=== PATIENT | male | born 1985 | race American Indian/Alaskan Native ===

== ENCOUNTER 2019-04-10 18:41 | Emergency (ER) | payer BC, MEDICARE ==
[2019-04-10 20:05] LABS: Basophils % (Auto) 0.8 % (0.0-1.8); Eosinophils % (Auto) 1.1 % (0.0-4.3); Hematocrit 35.9 % (35.5-45.6); Hemoglobin 11.9 gm/dl (11.8-15.2); Lymphocytes # (Auto) 1.3 K/mm3 (1.2-5.4); Mean Corpuscular HGB Conc 33 % (32-34); Mean Corpuscular Volume 105 fl (84-94); Monocytes # (Auto) 0.4 K/mm3 (0.0-0.8); Monocytes % (Auto) 10.5 % (0.0-7.3); Platelet Count 123 K/mm3 (140-440); Red Blood Count 3.42 M/mm3 (3.65-5.03); Red Cell Distribution Width 14.8 % (13.2-15.2)
[2019-04-10] MEDS ORDERED: SODIUM BICARB 8.4% 50 MEQ/50 ML SYRINGE IV ONE (20:06)
[2019-04-10] MEDS ORDERED: ALPRAZolam 0.5 MG TAB PO ONE (20:06)
[2019-04-10] MEDS ORDERED: dilTIAZem 25 MG/5 ML INJ IVP ONE (20:06)
--- NOTE | 2019-04-10 20:07 | Emergency Department Report ---
ED General Adult HPI - General Chief complaint: Arrhythmia/Palpitations Stated complaint: HEART RATE INCREASED Time Seen by Provider: 04/10/19 19:22 Source: patient, EMS (by EMS disclaimer), RN notes reviewed Mode of arrival: Ambulatory Limitations: No Limitations - History of Present Illness Initial comments: Primary care Dr.: Dr Javier Moreau Nephrology: Dr Brigitte Gong Cardiology: Dr Conrad Alvarez at [facility] Past medical history: End-stage renal disease, on dialysis, Monday, Monday, Monday, history of hypertension, history of a flutter/A. fib, chronic anticoagulation, reports history of ablation This is a pleasant 33-year-old gentleman who is not known to this provider previously. He presents to the ER with a complaint of painless tachycardia. He reports that he was at dialysis earlier on today, and was found to be in a flutter with rapid ventricular response. He denies physical pain at this time. He is asking to eat and drink. He endorses compliance with his medications. He endorses dietary compliance. He is currently engaged with his cellular phone, and does not appear to be in any acute distress. He reports that he's had a rapid a flutter in the past, and he indicates that being asymptomatic is typical for him. -: Sudden Severity scale (0 -10): 0 Consistency: constant Improves with: none Associated Symptoms: denies other symptoms - Related Data Previous Rx's Medication Instructions Recorded Last Taken Type dilTIAZem [Cardizem] 30 mg PO Q6HR #28 tablet 04/10/19 Unknown Rx Allergies Allergy/AdvReac Type Severity Reaction Status Date / Time lisinopril Allergy Angioedema Verified 04/10/19 19:09 ED Review of Systems ROS: Stated complaint: HEART RATE INCREASED Other details as noted in HPI Constitutional: denies: fever Eyes: denies: eye discharge ENT: denies: congestion Cardiovascular: as per HPI. denies: edema, syncope Gastrointestinal: denies: nausea, vomiting, hematemesis, melena, hematochezia Musculoskeletal: denies: myalgia Skin: denies: lesions Neurological: denies: weakness Hematological/Lymphatic: denies: easy bleeding ED Past Medical Hx - Past Medical History Previous Medical History?: Yes Hx Hypertension: Yes Hx Heart Attack/AMI: Yes (2 heart clamps, [place]) Hx Renal Disease: Yes (ESRD Dialysis MWF) Additional medical history: Hert murmur, leaky valves - Surgical History Past Surgical History?: Yes Additional Surgical History: 2 heart clamps, 2 knee replacements, peritoneal diaysis (previously) - Social History Smoking Status: Current Every Day Smoker Substance Use Type: Prescribed - Medications Home Medications: Home Medications Medication Instructions Recorded Confirmed Last Taken Type dilTIAZem [Cardizem] 30 mg PO Q6HR #28 tablet 04/10/19 Unknown Rx ED Physical Exam - General Limitations: No Limitations General appearance: alert, in no apparent distress - Head Head exam: Present: atraumatic, normocephalic - Eye Eye exam: Present: normal appearance, EOMI. Absent: nystagmus - ENT ENT exam: Present: normal exam, normal orophraynx, mucous membranes moist, normal external ear exam - Neck Neck exam: Present: normal inspection, full ROM. Absent: tenderness, meningismus - Respiratory Respiratory exam: Present: normal lung sounds bilaterally. Absent: respiratory distress - Cardiovascular Cardiovascular Exam: Present: tachycardia, irregular rhythm. Absent: systolic murmur, diastolic murmur, rubs, gallop - GI/Abdominal GI/Abdominal exam: Present: soft. Absent: distended, tenderness, guarding, rebound, rigid, pulsatile mass - Rectal Rectal exam: Present: deferred - Extremities Exam Extremities exam: Present: normal inspection, full ROM (there is a nonfunctioning left upper extremity graft. There is a right upper extremity fistula, with no redness, pus or streaking, and appropriate thrill is appreciated), other (2+ pulses noted in the bilateral upper, lower extremities. There is no long bone tenderness. Musculoskeletal compartments are soft. The pelvis is stable.). Absent: pedal edema, calf tenderness - Back Exam Back exam: Present: normal inspection, full ROM. Absent: tenderness, CVA tenderness (R), CVA tenderness (L), paraspinal tenderness, vertebral tenderness - Neurological Exam Neurological exam: Present: alert, normal gait, other (there is no facial droop. The tongue is midline. Extraocular movements are intact bilaterally. Patient speaking in full complete sentences. Shoulder shrug is intact bilaterally. Hearing is grossly intact bilaterally. Visual acuity intact to finger counting and color perception at a close distance. 5/5 strength 4 extremities. Sensation intact to light touch in 4 extremities.). Absent: motor sensory deficit - Psychiatric Psychiatric exam: Present: normal affect, normal mood - Skin Skin exam: Present: warm, dry, intact, normal color. Absent: rash ED Course Vital Signs 04/10/19 04/10/19 04/10/19 18:50 19:00 19:09 Temperature 97.8 F Pulse Rate 137 H 137 H 136 H Respiratory 13 14 Rate Blood Pressure 148/97 149/102 O2 Sat by Pulse 100 100 Oximetry 04/10/19 04/10/19 04/10/19 19:15 19:30 19:45 Temperature Pulse Rate 135 H 135 H 135 H Respiratory 12 15 14 Rate Blood Pressure 134/99 134/99 147/105 O2 Sat by Pulse 100 100 99 Oximetry 04/10/19 04/10/19 04/10/19 20:00 20:15 20:30 Temperature Pulse Rate 139 H Respiratory 17 17 16 Rate Blood Pressure 147/105 163/117 163/117 O2 Sat by Pulse 100 98 99 Oximetry 04/10/19 04/10/19 04/10/19 20:47 21:00 21:16 Temperature Pulse Rate 94 H 95 H 138 H Respiratory 15 16 16 Rate Blood Pressure 147/105 173/93 133/76 O2 Sat by Pulse 97 99 96 Oximetry 04/10/19 04/10/19 04/10/19 21:30 21:35 21:41 Temperature Pulse Rate 94 H 94 H 141 H Respiratory 15 Rate Blood Pressure 146/74 146/74 146/74 O2 Sat by Pulse 95 Oximetry 04/10/19 04/10/19 04/10/19 21:45 22:00 22:15 Temperature Pulse Rate 71 70 Respiratory 13 16 14 Rate Blood Pressure 140/74 140/74 121/58 O2 Sat by Pulse 97 96 97 Oximetry - Reevaluation(s) Reevaluation #1: 04/10/19 21:37 Differential diagnosis, including not limited to: A flutter with RVR, electrolyte derangement, conduction abnormality Assessment and plan: 33-year-old gentleman with painless history of A. fib/flutter, on chronic anticoagulation, now in a flutter with RVR, decreased with 50 mg of diltiazem, heart rate went down to 90s, no elevated again in the 140s. Laboratory studies suggest chronic renal insufficiency. We will give oral diltiazem and additional dose of IV diltiazem. If we are not able to obtain rate control, we will need to admit him for intravenous diltiazem drip. If rate control is achieved, we will discharge with short course of IV diltiazem, and instructions to follow up with his outpatient primary care doctor or facilities maintenance manager for further management. 04/10/19 22:36 Patient is reassessed. Tachycardia resolved. Continues to remain in atrial flutter, with variable conduction. He is in no acute distress at this time. Tolerating liquid feeds, and playing on his cellular phone. He can follow-up with his outpatient facilities maintenance manager. Return precautions are reviewed. ED Medical Decision Making - Lab Data Result diagrams: 04/10/19 19:29 04/10/19 19:29 Vital Signs 04/10/19 04/10/19 04/10/19 18:50 19:00 19:09 Temperature 97.8 F Pulse Rate 137 H 137 H 136 H Respiratory 13 14 Rate Blood Pressure 148/97 149/102 O2 Sat by Pulse 100 100 Oximetry 04/10/19 04/10/19 04/10/19 19:15 19:30 19:45 Temperature Pulse Rate 135 H 135 H 135 H Respiratory 12 15 14 Rate Blood Pressure 134/99 134/99 147/105 O2 Sat by Pulse 100 100 99 Oximetry 04/10/19 04/10/19 04/10/19 20:30 20:47 21:35 Temperature Pulse Rate 138 H 94 H 94 H Respiratory 15 Rate Blood Pressure 165/106 147/105 146/74 O2 Sat by Pulse 97 Oximetry Lab Results 04/10/19 04/10/19 04/10/19 Range/Units 19:29 19:29 19:29 WBC 3.9 L (4.5-11.0) K/mm3 RBC 3.42 L (3.65-5.03) M/mm3 Hgb 11.9 (11.8-15.2) gm/dl Hct 35.9 (35.5-45.6) % MCV 105 H (84-94) fl MCH 35 H (28-32) pg MCHC 33 (32-34) % RDW 14.8 (13.2-15.2) % Plt Count 123 L (140-440) K/mm3 Lymph % (Auto) 33.0 (13.4-35.0) % [facility] % (Auto) 10.5 H (0.0-7.3) % Eos % (Auto) 1.1 (0.0-4.3) % Baso % (Auto) 0.8 (0.0-1.8) % Lymph # 1.3 (1.2-5.4) K/mm3 [facility] # 0.4 (0.0-0.8) K/mm3 Eos # 0.0 (0.0-0.4) K/mm3 Baso # 0.0 (0.0-0.1) K/mm3 Seg Neutrophils % 54.6 (40.0-70.0) % Seg Neutrophils # 2.1 (1.8-7.7) K/mm3 Sodium 139 (137-145) mmol/L Potassium 4.2 (3.6-5.0) mmol/L Chloride 96.6 L (98-107) mmol/L Carbon Dioxide 23 (22-30) mmol/L Anion Gap 24 mmol/L BUN 31 H (9-20) mg/dL Creatinine 10.1 H (0.8-1.5) mg/dL Estimated GFR 6 ml/min BUN/Creatinine Ratio 3 % Glucose 71 L (75-100) mg/dL Calcium 9.6 (8.4-10.2) mg/dL Magnesium 2.10 (1.7-2.3) mg/dL - EKG Data -: EKG Interpreted by Me Rate: tachycardia - EKG Data 04/10/19 21:37 EKG #1 shows a flutter, 2-1 conduction, rapid ventricular response, QTC 523 ms, normal axis, borderline left ventricular hypertrophy, no endorsement of chest pain, the EKG is abnormal, the EKG is not consistent with STEMI - Radiology Data Radiology results: pending Critical Care Time: Yes Critical care time in (mins) excluding proc time.: 35 Critical care attestation.: If time is entered above; I have spent that time in minutes in the direct care of this critically ill patient, excluding procedure time. ED Disposition Clinical Impression: ESRD (end stage renal disease) on dialysis, Atrial flutter with rapid ventricular response, Anticoagulated Disposition: TO HOME OR SELFCARE Is pt being admited?: No Does the pt Need Aspirin: No Condition: Stable Additional Instructions: Continue current outpatient medications. Follow-up with your private facilities maintenance manager or a facilities maintenance manager within the next 3-5 days. Return to emergency room right away with new, worsened, different symptoms, symptoms not present on the initial emergency room evaluation. Referrals: [facility] [Provider Group] - 3-5 Days [facility]
[2019-04-10 20:19] LABS: Calcium 9.6 mg/dL (8.4-10.2)
[2019-04-10] MEDS ORDERED: dilTIAZem 30 MG TAB PO ONE (21:19)
[2019-04-10] MEDS ORDERED: dilTIAZem 25 MG/5 ML INJ IV ONE (21:19)
--- NOTE | 2019-04-10 22:03 | XRay Report ---
CHEST 1 VIEW 04/10/2019 9:20 PM INDICATION / CLINICAL INFORMATION: palpitations. Elevated heart rate. COMPARISON: None available. FINDINGS: SUPPORT DEVICES: None. HEART / MEDIASTINUM: Heart is mildly enlarged. Median sternotomy wires and implantable cardiac loop r ecorder are present. LUNGS / PLEURA: No significant pulmonary or pleural abnormality. No pneumothorax. ADDITIONAL FINDINGS: No significant additional findings. IMPRESSION: 1. Mild cardiomegaly but no acute pulmonary or pleural findings. Signer Name: Reyna Garcia MD Signed: 04/10/2019 9:58 PM Workstation Name: [id number]
[2019-04-10 23:07] VITALS: BP 135/67
== END 2019-04-10 23:10 | disposition home or self-care (01) ==
LOC: ED 18:41
DX: I12.0 Hypertensive chronic kidney disease with stage 5 chronic kidney disease or end stage renal disease (principal); N18.6 End stage renal disease; F17.200 Nicotine dependence, unspecified, uncomplicated; I48.3 Typical atrial flutter; Z99.2 Dependence on renal dialysis; Z96.653 Presence of artificial knee joint, bilateral; Z88.5 Allergy status to narcotic agent; Z79.899 Other long term (current) drug therapy
CPT/HCPCS: 36415; 71045; 80048; 83735; 85025; 93005; 93010; 96374; 96375